=== PATIENT | male | born 1985 | race Caucasian/White ===

== ENCOUNTER 2016-10-14 20:45 | Emergency (ER) | payer SELFPAY ==
[~2016-10-14] VITALS: Ht 190.5 cm; Wt 81.8 kg
[2016-10-14 21:04] VITALS: BP 139/89; PULSE 88; RESP 24; O2SAT 96
--- NOTE | 2016-10-14 22:04 | ED.REPORT ---
HPI-URI / Cough / Cold Date of Service Oct 14, 2016 ED Provider: Dr. Max Meek D.O. A 31 year old male with a history of asthma presents to the ED with an asthma attack onset yesterday after coming in close proximity to several cats, which is one of his known asthma triggers. His symptoms include wheezing and shortness of breath. He denies fever. His home inhalers have ceased to resolve his symptoms today. Nursing Notes Stated Complaint: TROUBLE BREATHING,ASTHMA Chief Complaint: Respiratory Complaints Nursing Notes Reviewed: Yes Allergies: Coded Allergies: Penicillins (Verified Allergy, Severe, 07/25/09) Uncoded Allergies: Penicillin (Allergy, Severe, 09/12/04) General Time Seen by MD: 22:03 Chief Complaint Other (Asthma Attack) Hx Obtained From: Patient Arrived By: Walk-in Onset Occurred: 1 - 4 hours ago Symptom Duration: Since onset Severity: Current: No pain currently Severity: Maximum: No pain Associated with: Reports: Shortness of breath, Denies: Fever Pertinent Negative: Relieved by nothing Related History: Reports: Asthma Context: Immunization Status General: Unknown Recent Healthcare: No recent doctor visit Similar Sx Previous: Yes Past Medical History Past Medical History Asthma Past Surgical History None reported Smoking History Former Smoker Ambulatory Status Independent Review of Systems Constitutional: Denies: Fever Respiratory: Reports: Shortness of breath, Wheezing GI: Denies: Vomiting Neurologic: Denies: Bladder dysfunction, Bowel dysfunction Complete sys rev & neg: except as marked. Physical Exam Initial Vital Signs Vital Signs (First) Date Time Temp Pulse Resp B/P Pulse Ox O2 Delivery O2 Flow Rate FiO2 10/14/16 21:04 36.5 88 24 139/89 96 Room Air Initial VS: Reviewed Head / Eyes: Atraumatic, Normocephalic Neck: Supple, Full range of motion Cardiovascular: Regular rate & rhythm, Heart sounds normal Skin: Warm, Dry, No cyanosis Neurologic: Alert, Oriented, Nonfocal Psychiatric: Mood/affect normal, Behavior normal, Normal thought content General/Constitutional: Awake, Alert Distress / Hydration: Positive: Distress mild Respiratory / Chest: Breath sounds = bilat, No respiratory distress Wheezing / Retractions: Positive: Wheezing moderate (Diffuse) Re-Eval/Medical Decision Med Decision/Clinical Course No pulmonary emboli or DVT risk factors. Pulmonary embolism rule out criteria met. D-dimer testing not indicated. Low well's score. Edwin was medicated and he improved dramatically. At discharge his lungs were clear and his respiratory rate was normal. I will refill his albuterol him on 5 days of prednisone. Recommend follow-up this week to discuss inhaled steroids with his primary care physician. Re-Evaluation/Progress : Time of Eval: 23:24 Patient Status: Condition improved Re-Evaluation/Progress Note: Discussed with patient diagnosis and plan for discharge. Follow-up and return to the ER instructions given. Patient agrees with plan for care and all questions were addressed. Counseled Regarding: Diagnosis, Need for follow-up, When/why to return to ED Discharge & Departure Impression: Primary Impression: Asthma Asthma severity: mild persistent Asthma complication type: with acute exacerbation Qualified Code: J45.31 - Mild persistent asthma with (acute) exacerbation Disposition: Home Discharge Condition All VS Reviewed: Yes Condition: Stable Patient Instructions: Asthma (ED) Additional Instructions: Prednisone daily for 5 days. Albuterol 2 puffs every 2 hours as needed for wheezing. I would like you to be seen this week in follow-up. Call your doctor tomorrow. You may need to be on an inhaled steroid so follow-up is essential. Return if any problems or any worsening symptoms. Return if you develop any pleuritic-type chest pain or if you cough up any blood. Referrals: OTHER,PHYSICIAN (PCP) [facility] Scribe Attestation Portions of this note were transcribed by Norah Fontanez. I, Dr. Meek, personally performed the history, physical exam, and medical decision-making; I reviewed and confirmed the accuracy of the information in the transcribed note. Signed by: Milton Draper, 10/15/2016, 00:21 copies to: [facility] Max Meek DO Oct 14, 2016 22:04 NORAH FONTANEZ Oct 14, 2016 22:24
[2016-10-14] MEDS ORDERED: Albuterol 2.5 mg/3 mL Inhalation Solution NEB ONE (22:10)
[2016-10-14] MEDS ORDERED: Albuterol-Ipratropium 3 mL Inhalation Solution NEB ONE (22:10)
[2016-10-14] MEDS ORDERED: predniSONE 20 mg Tablet PO ONE (22:10)
[2016-10-14 22:16] VITALS: PULSE 78; RESP 18; O2SAT 95
[2016-10-14] MEDS ORDERED: _Albuterol-HFA 60 Puff Inhaler INHALATION PRN (22:40)
[2016-10-14 23:41] VITALS: BP 132/81; PULSE 80; RESP 18; O2SAT 96
== END 2016-10-14 23:44 | disposition home or self-care (01) ==
LOC: SED 20:45
DX: J45.31 Mild persistent asthma with (acute) exacerbation (principal); Z87.891 Personal history of nicotine dependence; Z88.0 Allergy status to penicillin
CPT/HCPCS: 94644; 99284; J7613; J7620

== ENCOUNTER 2016-12-23 09:16 | Emergency (ER) | payer SELFPAY ==
[~2016-12-23] VITALS: Ht 190.5 cm; Wt 79.5 kg
[2016-12-23 09:23] VITALS: BP 136/91; PULSE 83; RESP 20; O2SAT 97
[2016-12-23] MEDS ORDERED: Albuterol-Ipratropium 3 mL Inhalation Solution NEB ONE (09:30)
--- NOTE | 2016-12-23 09:40 | ED.REPORT ---
HPI-General Illness Date of Service Dec 23, 2016 ED Provider: Ghansyham Ohara DO Edwin Martino is a 31 year old man with a PMH of asthma with frequent exacerbations. He presents with a 1 day history of increasing SOB secondary to a mix up with his pharmacy where they have misplaced the record of his refills for his usual Flovent and Albuterol. He states that he was helping out his mother to remodel her bathroom and was exposed to cats which is a trigger to him and perhaps mold in the course of that project. He states that when he gets to this level of SOB he typically requires a steroid burst. Nursing Notes Stated Complaint: ASTHMA ATTACK Chief Complaint: Respiratory Distress Nursing Notes Reviewed: Yes Allergies: Coded Allergies: No Known Allergies (Unverified , 12/23/16) Scheduled Beclomethasone Dipropionate (Qvar) 8.7 Gm Aer.w.adap 1 PUFF INHALATION BID Prednisone (PredniSONE) 20 Mg Tablet 40 MG PO DAILY Scheduled PRN Albuterol Neb Soln (Albuterol Neb Soln) 2.5 Mg/3 Ml Vial.neb 2.5 MG INHALATION Q4H PRN PRN For Shortness of Breath General Time Seen by MD: 09:30 Chief Complaint Breathing problem Hx Obtained From: Patient Arrived By: Walk-in Onset Occurred: 1 day ago Recent Healthcare: No recent doctor visit Similar Sx Previous: Yes Past Medical History Past Medical History Asthma Past Surgical History None reported Smoking History Former Smoker Ambulatory Status Independent Review of Systems Full Review of Systems Respiratory: Reports: Non-productive cough, Shortness of breath Physical Exam Gen: A/O x3 pleasant cooperative gentleman in NAD Neck: Supple, non tender, no thyromegaly HEENT: PERRL, EOMI, mucous membranes moist CV: RRR, no murmurs rubs or gallops Resp: Diffuse significant expiratory wheezing, no rales or rhonchi Extr: No cyanosis clubbing or edema Neuro: CN 2-12 grossly intact, no focal neurologic deficit. Vital Signs Vital Signs Date Time Temp Pulse Resp B/P Pulse Ox O2 Delivery O2 Flow Rate FiO2 12/23/16 09:23 36.2 83 20 136/91 97 Room Air Initial VS: Reviewed, Vital signs abnormal (Very mild HTN) Re-Eval/Medical Decision Med Decision/Clinical Course This is a gentleman suffering from a mild-moderate exacerbation of his asthma in the setting of running out of his medication. He was given a DuoNeb breathing treatment and a single dose of Dexamethasone and given a short term script of his usual home Asthma medications to tide him over until he can get back with his PCP. He was also given a script for a Prednisone burst as he states that is usually necessary when his asthma gets to this point. Patient was given Follow up instructions and return precautions prior to DC. Counseled Regarding: Diagnosis, Need for follow-up, When/why to return to ED Discharge & Departure Shift Change Sign-Out Patient Care Transferred: No Discussed Complaint(s): Yes Response to Therapy: Improved Primary Impression: Asthma Asthma severity: moderate persistent Asthma complication type: with acute exacerbation Qualified Code: J45.41 - Moderate persistent asthma with (acute) exacerbation Disposition: Home Discharge Condition All VS Reviewed: Yes Condition: Stable Patient Instructions: Asthma (ED), How to Use a Nebulizer (ED) Additional Instructions: This appears to be an exacerbation of your chronic asthma, we have given you a breathing treatment and a dose of steroids, and provided you with a short term script of your usual asthma medicines to tide you over until you can get back with your primary care doctor. I have also given you a short 5 day course of Prednisone. Please follow up with your primary care provider to get further access to your usual home meds, if your breathing significantly worsens despite use of your home medication please come back to the ED or urgent care for further evaluation. Referrals: OTHER,PHYSICIAN (PCP) Dr. Rod Ramirez copies to: OTHER,PHYSICIAN Jamaal Zaidi DO Dec 23, 2016 09:40
[2016-12-23] MEDS ORDERED: BECL8.7A6 INHALATION (09:44)
[2016-12-23] MEDS ORDERED: ALBU2.5V4 INHALATION (09:45)
[2016-12-23] MEDS ORDERED: Dexamethasone Inj 10 MG in 0.9% Sodium Chloride-Pha MIX 50 ML IV ONE (09:45)
[2016-12-23] MEDS ORDERED: PRE20 PO (09:47)
[2016-12-23 10:00] VITALS: PULSE 81; O2SAT 99
[2016-12-23 10:01] VITALS: PULSE 88; RESP 18; O2SAT 96
[2016-12-23] MEDS ORDERED: Albuterol 2.5 mg/3 mL Inhalation Solution NEB ONE (10:30)
[2016-12-23 11:21] VITALS: BP 123/71; PULSE 88; RESP 20; O2SAT 97
== END 2016-12-23 11:21 | disposition home or self-care (01) ==
LOC: SED 09:16
DX: J45.41 Moderate persistent asthma with (acute) exacerbation (principal); Z87.891 Personal history of nicotine dependence
CPT/HCPCS: 94640; 94664; 99283; J7620